=== PATIENT | male | born 1990 | race Caucasian/White ===

== ENCOUNTER 2017-04-24 06:28 | Emergency (ER) | payer SELFPAY ==
[2017-04-24 07:16] VITALS: BP 112/82; PULSE 78; TEMP 98; BMI 23.8
--- NOTE | 2017-04-24 08:32 | PDOC ---
History of Present Illness - General Chief Complaint: Rash Stated Complaint: RASH Time Seen by Provider: 04/24/17 08:04 History Source: Patient Exam Limitations: No Limitations - History of Present Illness Initial Comments: 04/24/17 12:58 My Chief Complaint: rash b/l upper arms History of present illness: Patient is a 27 year old here today complaining of a slightly pruritic rash to his bilateral upper arms for approximately one week. Patient denies that he he has had any vesicles on the rash. Patient denies any new foods or any new laundry detergents. Patient did get some new clothes recently. Patient denies any difficulty swallowing or breathing. Timing/Duration: getting worse Severity: mild Associated Symptoms: reports: rash (b/l upper arms ) Past History - Past Medical History Allergies/Adverse Reactions: Allergies Allergy/AdvReac Type Severity Reaction Status Date / Time No Known Allergies Allergy Verified 04/24/17 07:16 Home Medications: Ambulatory Orders Hydrocortisone 1% Ointment [Hytone 1% Ointment -] 1 applic TP BID #1 tube COPD: No Other medical history: NONE - Suicide/Smoking/Psychosocial Hx Smoking History: Never smoked Hx Alcohol Use: Yes (SOCIAL) Drug/Substance Use Hx: No Substance Use Type: None Review of Systems - Review of Systems Able to Perform ROS?: Yes Constitutional: No: Symptoms Reported HEENTM: No: Symptoms Reported Respiratory: No: Symptoms reported Cardiac (ROS): No: Symptoms Reported ABD/GI: No: Symptoms Reported : No: Symptoms Reported Musculoskeletal: No: Symptoms Reported Integumentary: Yes: Rash (upper arms b/l pruritic ) *Physical Exam - Vital Signs Last Vital Signs Temp Pulse Resp BP Pulse Ox 98.0 F 78 20 112/82 98 04/24/17 07:13 04/24/17 07:13 04/24/17 07:13 04/24/17 07:13 04/24/17 07:13 - Physical Exam General Appearance: Yes: Appropriately Dressed Respiratory/Chest: positive: Lungs Clear, Normal Breath Sounds. negative: Chest Tender, Respiratory Distress Cardiovascular: positive: Regular Rhythm, Regular Rate, S1, S2 Integumentary: positive: Rash (minimal raised area of erythema with irregular borders b/l upper medial arms ) Neurologic: positive: Alert, Normal Response, Responsive Medical Decision Making - Medical Decision Making 04/24/17 13:02 Patient is a 27 year old here today complaining of a slightly pruritic rash to his bilateral upper arms for approximately one week. Patient denies that he he has had any vesicles on the rash. Patient denies any new foods or any new laundry detergents. Patient did get some new clothes recently. Patient denies any difficulty swallowing or breathing. rash upper arms b/l PLAN: HC 1 % ointment bid to rash until resolved follow up with civil structural designer *DC/Admit/Observation/Transfer Diagnosis at time of Disposition: Pruritic rash - Discharge Dispostion Disposition: HOME Condition at time of disposition: Stable - Prescriptions Prescriptions: Hydrocortisone 1% Ointment [Hytone 1% Ointment -] 1 applic TP BID #1 tube - Referrals Referrals: Vincent Cortez [Non Staff, Medical] - - Patient Instructions Additional Instructions: May take Benadryl as needed as directed by manufacture for itchiness Follow-up with civil structural designer if rash does not resolve Return to emergency room if any new symptoms develop Patient voiced understanding of discharge instructions and all questions were answered And thank you for choosing [facility] emergency room for your medical needs today - Post Discharge Activity
== END 2017-04-24 08:46 | disposition home or self-care (01) ==
LOC: JERFT 06:28 → JER 06:28 → JERFT 08:46
DX: R21 Rash and other nonspecific skin eruption (principal); L29.8 Other pruritus
CPT/HCPCS: 99281-25

== ENCOUNTER 2017-06-04 08:55 | Emergency (ER) | payer SELFPAY ==
[2017-06-04 09:09] VITALS: BP 129/80; PULSE 100; TEMP 99.3; BMI 20.8
[2017-06-04] MEDS ORDERED: AZITHROMYCIN 1 GM PACKET PO ONE (09:16)
[2017-06-04 09:49] LABS: URINE APPEARANCE CLEAR; URINE BILIRUBIN NEGATIVE (NEGATIVE); URINE BLOOD NEGATIVE (NEGATIVE); URINE COLOR LTYELLOW; URINE GLUCOSE (UA) NEGATIVE (NEGATIVE); URINE KETONE NEGATIVE (NEGATIVE); URINE NITRITE NEGATIVE (NEGATIVE); URINE PROTEIN NEGATIVE (NEGATIVE)
--- NOTE | 2017-06-04 10:07 | PDOC ---
History of Present Illness - General Chief Complaint: Urinary Problem Stated Complaint: STD TESTING, POSSIBLE UTI Time Seen by Provider: 06/04/17 09:15 History Source: Patient Exam Limitations: No Limitations - History of Present Illness Initial Comments: 06/04/17 10:07 Patient is a 27-year-old male, denies any significant medical history currently on no medication presents for evaluation of penile drainage. His girlfriend was diagnosed with PID and is concerned here for STD testing. Past Medical History: [Denies]. Allergies: No known allergies Medications: [None] Family History: Non-contributory Social History: Denies smoking, alcohol use, or IVDU Review of Systems GENERAL/CONSTITUTIONAL: [No fever or chills. No weakness. No weight change.] HEAD, EYES, EARS, NOSE AND THROAT: [No change in vision. No ear pain or discharge. No sore throat. ] CARDIOVASCULAR: [No chest pain or shortness of breath.] RESPIRATORY: [No cough, wheezing, or hemoptysis.] GASTROINTESTINAL: [No nausea, vomiting, diarrhea or constipation. No rectal bleeding.] GENITOURINARY: [No dysuria, frequency, or change in urination. Penile discharge. ] MUSCULOSKELETAL: [No joint or muscle swelling or pain. No neck or back pain.] SKIN : [No rash or easy bruising.] NEUROLOGIC: [No headache, vertigo, loss of consciousness, or loss of sensation.] ALLERGIC/IMMUNOLOGIC: [No hives or skin allergy. No latex allergy.] Physical Exam: GENERAL: [The patient is awake, alert, and fully oriented, in no acute distress. ] EYES: [Pupils equal, round and reactive to light, extraocular movements intact, sclera anicteric, conjunctiva clear.] ENT: [Ears normal, nares patent, oropharynx clear without exudates. Moist mucous membranes. No uvula deviation] NECK: [Normal range of motion, supple without lymphadenopathy, JVD, or masses.] LUNGS: [Breath sounds equal, clear to auscultation bilaterally. No wheezes, and no crackles.] HEART: [Regular rate and rhythm, normal S1 and S2 without murmur, rub or gallop. ] ABDOMEN: [Soft, nontender, normoactive bowel sounds. No guarding, no rebound. No masses. No bruising or abrasions] GENITALIA: Yellow penile discharge. No lesions. MUSCULOSKELETAL: [Normal range of motion, no edema. No clubbing or cyanosis. No cords, erythema, or tenderness. No CVA Tenderness with fist.] NEUROLOGICAL: [Cranial nerves II through XII grossly intact. Normal speech, normal gait.] SKIN: [Warm, Dry, normal turgor, no rashes or lesions noted.] Past History - Past Medical History Allergies/Adverse Reactions: Allergies Allergy/AdvReac Type Severity Reaction Status Date / Time No Known Allergies Allergy Verified 06/04/17 09:06 Home Medications: Ambulatory Orders Hydrocortisone 1% Ointment [Hytone 1% Ointment -] 1 applic TP BID #1 tube COPD: No - Suicide/Smoking/Psychosocial Hx Smoking History: Never smoked Hx Alcohol Use: No Drug/Substance Use Hx: No Substance Use Type: None *Physical Exam - Vital Signs Last Vital Signs Temp Pulse Resp BP Pulse Ox 99.3 F 100 H 18 129/80 100 06/04/17 09:07 06/04/17 09:07 06/04/17 09:07 06/04/17 09:07 06/04/17 09:07 Medical Decision Making - Medical Decision Making 06/04/17 10:11 A/P: Patient here requesting STD testing states he has penile discharge girlfriend was diagnosed with PID urinalysis, urine culture, gonorrhea Chlamydia , HIV and RPR sent. Patient reports in April also was diagnosed with urinary tract infection STD testing was negative at that time. Azithromycin 1 gm, rocephin 250 mg IM x 1 ordered. 06/04/17 11:42 HIV still pending 06/04/17 11:54 A/P is negative, will DC patient home supportive care follow-up with PMD: One week for results of gonorrhea chlamydia testing. *DC/Admit/Observation/Transfer Diagnosis at time of Disposition: Penile discharge - Discharge Dispostion Disposition: HOME Condition at time of disposition: Stable Admit: No - Referrals - Patient Instructions Printed Discharge Instructions: Facts About Sexually Transmitted Infections Additional Instructions: Please call in one week for results of gonorrhea chlamydia testing at [phone] Refrain from sexual activity for at least 2 week - Post Discharge Activity Forms/Work/School Notes: Back to Work
[2017-06-04 10:29] LABS: URINE LEUK ESTERASE 1+ (NEGATIVE)
[2017-06-04] MEDS ORDERED: AZITHROMYCIN 500 MG TABLET ONE ×2 (10:55→10:56)
[2017-06-04 11:50] LABS: EPI CELLS RARE /HPF (FEW); URINE MUCUS RARE
--- NOTE | 2017-06-07 11:24 | PDOC ---
Patient Follow-up (Call Back) - Post ED Follow - Up Condition at time of discharge: Stable Disposition at time of original discharge: HOME Reason for Call Back: Abnwl. Lab (Attempted to call twice; number is not valid)
== END 2017-06-04 12:01 | disposition home or self-care (01) ==
LOC: JERFT 08:55
DX: R36.9 Urethral discharge, unspecified (principal)
CPT/HCPCS: 36415; 81003; 81015; 86593; 87086; 87389; 87491; 87591; 99281-25

== ENCOUNTER 2018-02-14 12:45 | Emergency (ER) | payer SELFPAY ==
[2018-02-14 13:08] VITALS: TEMP 98.2; BMI 20.2
--- NOTE | 2018-02-14 14:23 | PDOC ---
History of Present Illness - General Chief Complaint: Pain Stated Complaint: PAIN IN TESTACLES History Source: Patient, Unavil. due to pt. cond. - History of Present Illness Initial Comments: 02/14/18 14:18 27-year-old male history of recent gonorrhea and history of testicular cyst diagnosed MANY YEARS AGO Q TODAY COMPLAINING OF RIGHT TESTICULAR PAIN PATIENT STATES HIS SYMPTOMS STARTED A FEW DAYS AGO WHILE HE WAS RIDING ON A BUS INITIALLY HAD LEFT-SIDED TESTICULAR PAIN URINALYSIS RIGHT-SIDED PAIN HE THOUGHT MAYBE HE HAD SAT ON HIS TESTICLE HE DENIES ANY URETHRAL DISCHARGE is currently in a new relationship was recently tested for all STDs and was found positive for gonorrhea which he was treated for but negative for all other STDs denies any fevers chills flank pain no abdominal pain no nausea vomiting Past History - Past Medical History Allergies/Adverse Reactions: Allergies Allergy/AdvReac Type Severity Reaction Status Date / Time No Known Allergies Allergy Verified 02/14/18 13:08 Home Medications: Ambulatory Orders Hydrocortisone 1% Ointment [Hytone 1% Ointment -] 1 applic TP BID #1 tube Doxycycline Monohydrate [Mondoxyne Nl] 100 mg PO BID 7 Days #14 capsule MDD 2 COPD: No - Suicide/Smoking/Psychosocial Hx Smoking History: Never smoked Have you smoked in the past 12 months: No Information on smoking cessation initiated: No Hx Alcohol Use: No Drug/Substance Use Hx: No Substance Use Type: None Review of Systems - Review of Systems Constitutional: No: Diaphoresis, Fever ABD/GI: No: Abdominal Distended, Nausea : Yes: Pain, Testicular Pain. No: Flank Pain (THAT TIME), Urgency Integumentary: No: Bruising, Change in Color Neurological: No: Headache, Numbness (PHYSICAL FOR IS pENDING.) All Other Systems: Reviewed and Negative *Physical Exam - Vital Signs Last Vital Signs Temp Pulse Resp BP Pulse Ox 98.2 F 81 18 108/70 100 02/14/18 13:06 02/14/18 13:06 02/14/18 13:06 02/14/18 13:06 02/14/18 13:06 - Physical Exam General Appearance: Yes: Appropriately Dressed HEENT: positive: Normal ENT Inspection Neck: positive: Trachea midline Respiratory/Chest: positive: Lungs Clear, Normal Breath Sounds Cardiovascular: positive: Regular Rhythm, Regular Rate, S1, S2 Gastrointestinal/Abdominal: positive: Normal Bowel Sounds, Flat, Soft. negative : Tender Male Genitalia: positive: normal genitalia, testicular tenderness (RIGHT SIDED EPIDIDYMAL TTP, NO ERYTHEMA NO MASS FELT). negative: discharge, hernia Extremity: positive: Normal Capillary Refill, Normal Range of Motion. negative : Normal Inspection Integumentary: positive: Normal Color, Dry, Warm Neurologic: positive: Fully Oriented, Alert, Normal Mood/Affect ED Treatment Course - RADIOLOGY Radiology Studies Ordered: Category Date Time Status SCROTUM AND CONTENTS US [US] Stat Ultrasound 02/14/18 13:49 Ordered Medical Decision Making - Medical Decision Making 02/14/18 14:21 Differential diagnosis includes orchitis epididymitis STDs just gonorrhea or chlamydia UTI plan UA and THE RIGHT TESTICLE LIKELY TREAT FOR ANY STDS SUCH GONORRHEA OR CHLAMYDIA MOTRIN FOR PAIN CONTROL AND UROLOGY FOLLOW-UP PENDING ULTRASOUND RESULTS *DC/Admit/Observation/Transfer Diagnosis at time of Disposition: Epididymitis - Prescriptions Prescriptions: Doxycycline Monohydrate [Mondoxyne Nl] 100 mg PO BID 7 Days #14 capsule MDD 2 - Referrals Referrals: Bam Del Rosario MD [Staff Physician] - - Patient Instructions Printed Discharge Instructions: DI for Epididymitis Additional Instructions: you should take doxycycline 100 mg twice dialy x 7 days. return for any redness , worsening pain or any concerns. follow up with a urologist. call dr. Del Rosario to schedule see referral for information. - Post Discharge Activity
[2018-02-14] MEDS ORDERED: IBUPROFEN 600 MG TABLET (FP) PO ONE ×2 (14:24→17:50)
[2018-02-14 15:13] LABS: URINE APPEARANCE CLEAR; URINE BILIRUBIN NEGATIVE (<2.0 mg/dL); URINE COLOR YELLOW; URINE GLUCOSE (UA) NEGATIVE (NEGATIVE); URINE KETONE NEGATIVE (NEGATIVE); URINE LEUK ESTERASE NEGATIVE (NEGATIVE); URINE NITRITE NEGATIVE (NEGATIVE); URINE PROTEIN NEGATIVE (NEGATIVE); URINE UROBILINOGEN 0.2 mg/dL (0.2-1.0)
[2018-02-14] MEDS ORDERED: DOXYCYCLINE HYCLATE 100 MG CAPSULE PO ONE ×2 (15:47→17:50)
[2018-02-14] MEDS ORDERED: cefTRIAXone SODIUM 1 GM VIAL ONE (17:52)
--- NOTE | 2018-02-14 18:19 | PDOC ---
*Physical Exam - Vital Signs Last Vital Signs Temp Pulse Resp BP Pulse Ox 98.2 F 81 18 108/70 100 02/14/18 13:06 02/14/18 13:06 02/14/18 13:06 02/14/18 13:06 02/14/18 13:06 ED Treatment Course - ADDITIONAL ORDERS Additional order review: Laboratory Results 02/14/18 15:00 Urine Color Yellow Urine Appearance Clear Urine pH 6.0 Ur Specific [place] 1.015 Urine Protein Negative Urine Glucose (UA) Negative Urine Ketones Negative Urine Blood Negative Urine Nitrite Negative Urine Bilirubin Negative Urine Urobilinogen 0.2 Ur Leukocyte Esterase Negative - Medications Given in the ED: ED Medications Discontinued Medications Generic Name Dose Route Start Last Admin Trade Name Freq PRN Reason Stop Dose Admin Doxycycline Hyclate 100 mg 02/14/18 15:47 02/14/18 18:03 Vibramycin - PO 02/14/18 15:48 100 mg ONCE ONE Administration Ibuprofen 600 mg 02/14/18 14:24 02/14/18 18:02 Motrin - PO 02/14/18 14:25 600 mg ONCE ONE Administration Medical Decision Making - Medical Decision Making 02/14/18 18:17 pot signed out to me from Dr. Plasencia. Awaiting US to r/o torsion vs epidimydis fo complaint of testicular pain. pt treated for STDs and written for abx for presumed epididumydis US neg for torsion rehana dc with pmd fu return precautions were discussed *DC/Admit/Observation/Transfer Diagnosis at time of Disposition: Epididymitis - Discharge Dispostion Disposition: HOME Condition at time of disposition: Improved Decision to Admit order: No - Referrals Referrals: Bam Del Rosario MD [Staff Physician] - - Patient Instructions Printed Discharge Instructions: DI for Epididymitis Additional Instructions: you should take doxycycline 100 mg twice dialy x 7 days. return for any redness , worsening pain or any concerns. follow up with a urologist. call dr. Del Rosario to schedule see referral for information. Print Language: [place]ISH - Post Discharge Activity Forms/Work/School Notes: Back to Work
[2018-02-14 18:28] VITALS: BP 108/71; PULSE 70
== END 2018-02-14 20:30 | disposition home or self-care (01) ==
LOC: JER 12:45
DX: N45.1 Epididymitis (principal)
CPT/HCPCS: 36415; 76870-TC; 81003; 87491; 87591; 99282-25